=== PATIENT | female | born 1990 | race Two or more races ===

== ENCOUNTER 2020-04-11 04:03 | Inpatient (IN) | payer MEDICAID, OTHER ==
[~2020-04-11] VITALS: Ht 162.6 cm; Wt 97.5 kg
[2020-04-11] MEDS ORDERED: LACT. RINGERS/OXYTOCIN 20UNITS 1,000 ML IV SCH (05:03)
[2020-04-11] MEDS ORDERED: LACTATED RINGER'S 1,000 ML IV SCH (05:03)
[2020-04-11] MEDS ORDERED: PENICILLIN G POT 5MIL/D5 50ML 50 ML IV ONE ×2 (05:13→05:15)
[2020-04-11] MEDS ORDERED: DERMOPLAST 60ML BOTTLE TOP PRN (05:15)
[2020-04-11] MEDS ORDERED: METHYLERGONOVINE MALEATE 0.2 MG/ML AMP IM PRN (05:15)
[2020-04-11] MEDS ORDERED: WITCH HAZEL-GLYCERIN PAD TOP PRN (05:15)
[2020-04-11] MEDS ORDERED: LIDOCAINE 2%HCL (LOCAL ANESTH.) INJ 20ML MDV ID PRN (05:15)
[2020-04-11] MEDS ORDERED: PHISODERM TOP SOLN 240ML BTL TOP PRN (05:15)
[2020-04-11 05:49] LABS: Basophils # (auto) 0.1 10 ^3/uL (0-0.2); Basophils % (auto) 0.9 % (0.0-2.0); Eosinophils # (auto) 0.2 10 ^3/uL (0-0.8); Eosinophils % (auto) 1.3 % (0.0-7.0); Hematocrit 39.5 % (36.0-46.0); Hemoglobin 13.2 g/dL (12.2-16.2); Lymphocytes # (auto) 2.7 10 ^3/uL (0.4-5.4); Lymphocytes % (auto) 20.3 % (10.0-50.0); Mean Corpuscular Hemoglobin 30.1 pg (28.0-32.0); Mean Corpuscular Hgb Conc. 33.3 g/dL (32.0-36.0); Mean Corpuscular Volume 90.4 fL (80.0-100.0); Monocytes # (auto) 0.7 10 ^3/uL (0-1.3); Monocytes % (auto) 5.3 % (0.0-12.0); Neutrophils # (auto) 9.6 10 ^3/uL (1.6-8.6); Neutrophils % (auto) 72.2 % (37.0-80.0); Platelet Count (auto) 301 10^3/uL (140-450); Red Blood Cells 4.36 10^6/uL (4.0-5.20); White Blood Cell 13.4 10^3/uL (4.4-10.8)
[2020-04-11 05:58] LABS: INR 0.93 (0.9-1.15); Partial Thromboplastin Time 27.5 sec (23.0-31.2)
[2020-04-11 06:02] LABS: Albumin 2.6 g/dL (3.4-5.0); BUN/Creatinine Ratio 12.2; Calcium 8.8 mg/dL (8.5-10.1); Potassium 3.8 mmol/L (3.5-5.1)
[2020-04-11 06:05] LABS: Bilirubin, Total 0.4 mg/dL (0.2-1.0); Total Protein 6.6 g/dL (6.4-8.2)
[2020-04-11 06:10] LABS: Urine Bacteria FEW /hpf (None Seen); Urine Blood Negative /uL (Negative); Urine Hyaline Cast FEW /lpf (0 - 2); Urine Mucus FEW (None Seen); Urine Specific Gravity 1.014 (1.001-1.035); Urine WBC 1 /hpf (0 - 5)
[2020-04-11 06:19] LABS: Alcohol, Urine < 3.0 mg/dL (0-10); Amphetamine Screen, Urine NEGATIVE (NEGATIVE); Barbiturate Scree,Urine NEGATIVE (NEGATIVE); Benzodiazephine Screen, Urine NEGATIVE (NEGATIVE); Cannabinoid Screen, Urine NEGATIVE (NEGATIVE); Cocaine Screen, Urine NEGATIVE (NEGATIVE); Opiate Scree,Urine NEGATIVE (NEGATIVE); Phencyclidine Screen, Urine NEGATIVE (NEGATIVE)
[2020-04-11] MEDS ORDERED: PENICILLIN G POTASSIUM 2,500,000 UNITS in D5W 5% 50 ML IV SCH (09:15)
[2020-04-11] MEDS ORDERED: LACTATED RINGER'S 1,000 ML IV ONE (11:35)
[2020-04-11] MEDS ORDERED: LIDOCAINE HCL 2 %PF INJ 10ML AMP IJ ONE (11:45)
[2020-04-11] MEDS ORDERED: NALOXONE HCL 0.4 MG/ML VIAL IV ONE (11:45)
[2020-04-11] MEDS ORDERED: ROPIVACAINE HCL 100 ML EPI SCH (11:45)
[2020-04-11] MEDS ORDERED: ePHEDrine SULFATE 50 MG/ML AMP IV ONE (11:45)
[2020-04-11] MEDS ORDERED: fentaNYL CITRATE 100 MCG/2 ML VL IV ONE (11:45)
[2020-04-11] MEDS ORDERED: PROMETHAZINE HCL 25 MG/ML 1ML IV ONE (12:00)
[2020-04-11] MEDS ORDERED: BUTORPHANOL TARTRATE 2 MG/1 ML VIAL IV ONE (12:00)
[2020-04-11] MEDS ORDERED: IBUPROFEN 600 MG TAB PO PRN (12:45)
--- NOTE | 2020-04-11 15:00 | NUR ---
Patient ambulated to the restroom with standby assist of RN. Tolerated well. Void 800ml urine without difficulty. One small, dime size clot noted on pad. Mackenzie pad and pad weighed. QBL 159 ml. Total QBL 234 ml. Educated on pericare. Demonstrated proper technique without difficulty. Ambulated back to bed. Steady gait. Pain 0/10. Educated on need to massage fundus to decrease risk of hemorrhage, call for assistance to the restroom for second void, call if any clots noted. Verbalized understanding of all information.
[2020-04-11] MEDS ORDERED: PREN-96 PO (17:26)
[2020-04-11 19:00] VITALS: BP 116/67
--- NOTE | 2020-04-11 21:37 | NUR ---
IV removal IV DC'd with sterile technique, catheter fully intact. Pressure dressing applied to site. Patient tolerated procedure well.
[2020-04-11] MEDS ORDERED: TETANUS-DIPTH-ACEL PERTUSSIS 0.5ML SYR Tdap IM ONE (22:15)
[2020-04-11 22:52] VITALS: BP 122/80
[2020-04-12 02:44] VITALS: BP 118/83
[2020-04-12 07:00] VITALS: BP 119/82
--- NOTE | 2020-04-12 09:30 | NUR ---
[employer] SUPERVISOR JAY JAY AT BEDSIDE AND SPOKE WITH PATIENT AND OKAY TO BE DISCHARGED ON SOCIAL; SERVICE STAND POINT.
[2020-04-12 10:33] VITALS: BP 121/85
--- NOTE | 2020-04-12 10:46 | NUR ---
Assessment Regarding Social service consult for [employer]. Patient is a Ukrainian speaker. Patient informed me she did take her care during . Patient informed me she did understand the bedside nurse when they where asking her questions. Patient resides with family and will have assistance with baby upon discharge. Patient has all supplies as well as car seat for baby and will be bottle and breastfed. Pt has medical insurance for herself and baby and will be following up with provider appt post discharge. Pt has transportation home upon discharge. Informed USHA Wilburn.
--- NOTE | 2020-04-12 12:20 | NUR ---
Report given to Shanita Carlos RN
--- NOTE | 2020-04-12 14:51 | NUR ---
Discharge: Discharge instructions given as ordered. Pt encouraged to follow up with AUDIT MACHINE OPERATOR as instructed. All questions and concerns addressed. Patient verbalized understanding. Medication reconciliation completed and copy given to patient. All required/requested vaccines given and copies of vaccinations given to patient. Patient encouraged to prepare to depart unit.
[2020-04-12 15:14] VITALS: BP 119/82
--- NOTE | 2020-04-12 15:15 | NUR ---
Discharge: Patient taken to vehicle via ambulating with all personal belongings, accompanied by staff and family member. No distress noted at time of departure, no adverse changes in status since initial assessment. All d/c education translated by [employer].
== END 2020-04-12 15:15 | disposition home or self-care (01) | DRG 560 ==
LOC: LDRP 04:03 → OBSVTOIN 04:58 → LDRP 04:59
PROVIDERS: ADMIT Specialist; ATTEND Specialist
PROC: 10E0XZZ Delivery of Products of Conception, External Approach (ICD-10-PCS; principal; 2020-04-11)
PROC: 3E0234Z Introduction of Serum, Toxoid and Vaccine into Muscle, Percutaneous Approach (ICD-10-PCS; 2020-04-11)
DX: O80 Encounter for full-term uncomplicated delivery (principal); Z37.0 Single live birth; Z3A.39 39 weeks gestation of pregnancy; Z11.59 Encounter for screening for other viral diseases; Z23 Encounter for immunization
CPT/HCPCS: 36415; 59025; 59409; 80053; 80307; 81001; 81002; 84112; 85025; 85610; 85730; 86850; 86900; 86901; 90715; 96360; 96361; 96365; 96366; 96372; G0378; J2540; J2590; J7060

== ENCOUNTER 2022-03-19 09:53 | Observation (INO) | payer MEDICAID ==
[~2022-03-19 09:53] MED LIST: PREN-96 PO
== END 2022-03-19 11:35 | disposition home or self-care (01) ==
LOC: LDRP 09:53
PROVIDERS: ADMIT Obstetrics & Gynecology; ATTEND Obstetrics & Gynecology
DX: O62.9 Abnormality of forces of labor, unspecified (principal); Z3A.39 39 weeks gestation of pregnancy
CPT/HCPCS: 59025; 81002; G0378

== ENCOUNTER 2022-03-20 03:21 | Inpatient (IN) | payer MEDICAID ==
[~2022-03-20] VITALS: Ht 157.5 cm; Wt 99.8 kg
[2022-03-20] MEDS ORDERED: LACTATED RINGER'S 1,000 ML IV SCH (04:00)
[2022-03-20] MEDS ORDERED: PHISODERM TOP SOLN 240ML BTL TOP PRN (04:00)
[2022-03-20] MEDS ORDERED: WITCH HAZEL-GLYCERIN PAD TOP PRN (04:00)
[2022-03-20] MEDS ORDERED: LIDOCAINE 2%HCL (LOCAL ANESTH.) INJ 10ml MDV IJ PRN (04:00)
[2022-03-20] MEDS ORDERED: PROMETHAZINE HCL 25 MG/ML 1ML IV PRN (04:00)
[2022-03-20] MEDS ORDERED: BUTORPHANOL TARTRATE 2 MG/1 ML VIAL IV PRN ×2 (04:00)
[2022-03-20] MEDS ORDERED: DERMOPLAST 60ML BOTTLE TOP PRN (04:00)
[2022-03-20] MEDS ORDERED: PENICILLIN G POT 5MIL/D5 50ML 50 ML IV ONE (04:00)
[2022-03-20 04:25] LABS: Basophils # (auto) 0 10 ^3/uL (0-0.2); Basophils % (auto) 0.4 % (0.0-2.0); Eosinophils # (auto) 0.1 10 ^3/uL (0-0.8); Eosinophils % (auto) 0.9 % (0.0-7.0); Hematocrit 38.1 % (36.0-46.0); Hemoglobin 12.5 g/dL (12.2-16.2); Lymphocytes # (auto) 2.5 10 ^3/uL (0.4-5.4); Lymphocytes % (auto) 19.9 % (10.0-50.0); Mean Corpuscular Hemoglobin 28.7 pg (28.0-32.0); Mean Corpuscular Hgb Conc. 32.9 g/dL (32.0-36.0); Mean Corpuscular Volume 87.1 fL (80.0-100.0); Monocytes # (auto) 0.6 10 ^3/uL (0-1.3); Monocytes % (auto) 4.8 % (0.0-12.0); Neutrophils # (auto) 9.2 10 ^3/uL (1.6-8.6); Red Blood Cells 4.38 10^6/uL (4.0-5.20); White Blood Cell 12.5 10^3/uL (4.4-10.8)
[2022-03-20 04:44] LABS: INR 0.89 (0.9-1.15); Partial Thromboplastin Time 28.1 sec (24.6-33.4)
[2022-03-20 04:53] LABS: Albumin 2.9 g/dL (3.4-5.0); BUN/Creatinine Ratio 16.1; Calcium 8.8 mg/dL (8.5-10.1); Potassium 3.6 mmol/L (3.5-5.1)
[2022-03-20 04:56] LABS: Bilirubin, Total 0.3 mg/dL (0.2-1.0); Total Protein 6.6 g/dL (6.4-8.2)
[2022-03-20] MEDS ORDERED: NS/OXYTOCIN 20UNITS 500 ML IV ONE ×4 (05:45→07:30)
[2022-03-20] MEDS ORDERED: OXYTOCIN 10UNIT/ML 1ML VIAL ONE (06:44)
[2022-03-20] MEDS ORDERED: OXYTOCIN 10UNIT/ML 1ML VIAL IM ONE (06:45)
[2022-03-20 06:52] LABS: Alcohol, Urine < 3.0 mg/dL (0-10); Amphetamine Screen, Urine NEGATIVE (NEGATIVE); Barbiturate Scree,Urine NEGATIVE (NEGATIVE); Benzodiazephine Screen, Urine NEGATIVE (NEGATIVE); Cannabinoid Screen, Urine NEGATIVE (NEGATIVE); Cocaine Screen, Urine NEGATIVE (NEGATIVE); Opiate Scree,Urine NEGATIVE (NEGATIVE); Phencyclidine Screen, Urine NEGATIVE (NEGATIVE)
[2022-03-20 06:53] LABS: Urine Bacteria NONE SEEN /hpf (None Seen); Urine Blood 1+ /uL (Negative); Urine Mucus FEW (None Seen); Urine Specific Gravity 1.014 (1.001-1.035); Urine WBC 2 /hpf (0 - 5)
[2022-03-20] MEDS ORDERED: ACETAMINOPHEN 325 MG TAB PO PRN (07:00)
[2022-03-20] MEDS ORDERED: IBUPROFEN 600 MG TAB PO PRN (07:00)
[2022-03-20] MEDS ORDERED: ONDANSETRON HCL 4 MG/2 ML VIAL IV PRN (07:00)
[2022-03-20] MEDS ORDERED: PENICILLIN G POTASSIUM 2,500,000 UNITS in D5W 5% 50 ML IV SCH (08:00)
[2022-03-20 09:19] VITALS: BP 123/65
[2022-03-20 11:20] VITALS: BP 115/60
[2022-03-20] MEDS: IBUPROFEN 800 MG TAB PO SCH ×2 (12:00→18:00)
[2022-03-20 15:00] VITALS: BP 126/74
[2022-03-20 19:30] VITALS: BP 117/65
[2022-03-20] MEDS ORDERED: DOCUSATE SOD 100 MG CAP PO SCH (22:00)
[2022-03-20 23:00] VITALS: BP 116/78
[2022-03-21 03:30] VITALS: BP 114/69
[2022-03-21] MEDS: IBUPROFEN 800 MG TAB PO SCH ×3 (05:43→12:00)
[2022-03-21] MEDS ORDERED: IBUP800T26 PO (06:12)
[2022-03-21 07:00] VITALS: BP 115/71
[2022-03-21 09:06] LABS: RPR Non Reactive (Non Reactive)
[2022-03-21 11:00] VITALS: BP 129/77
== END 2022-03-21 12:20 | disposition home or self-care (01) | DRG 560 ==
LOC: LDRP 03:21 → OBSVTOIN 03:52 → LDRP 04:18
PROVIDERS: ADMIT Obstetrics & Gynecology; ATTEND Obstetrics & Gynecology
PROC: 10E0XZZ Delivery of Products of Conception, External Approach (ICD-10-PCS; principal; 2022-03-20)
DX: O69.81X0 Labor and delivery complicated by cord around neck, without compression, not applicable or unspecified (principal); Z37.0 Single live birth; Z20.822 Contact with and (suspected) exposure to COVID-19; Z3A.39 39 weeks gestation of pregnancy
CPT/HCPCS: 36415; 59409; 80053; 80307; 81001; 85025; 85610; 85730; 86592; 86762; 86850; 86900; 86901; 87340; 94760; 96360; 96361; 96365; 96366; 96372; G0378; J2001; J2540; J2590; J7060

== ENCOUNTER 2024-11-18 06:20 | Emergency (ER) | payer MEDICAID ==
[~2024-11-18] VITALS: Ht 165.1 cm; Wt 104.0 kg
[~2024-11-18 06:20] MED LIST changes: +IBUP-1455 PO
--- NOTE | 2024-11-18 07:00 | ED.PDOC ---
SOB-HPI HPI Comments 33 year old female presents to the ED with a chief complaint of shortness of breath onset yesterday (11/17/24). 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 Patient believes it could be causes to chemicals she used to clean. Denies any PMHx as well as headache, dizziness, blurry vision, nausea, vomiting, diarrhea, abdominal pain, LOC, fall. No other symptoms or modifying factors present at this time. Chief Complaint: Shortness of Breath Time Seen by MD: 06:53 Reviewed notes: Medications, Allergies Information Source: Patient Mode of Arrival: Ambulatory Severity: Moderate Timing: Hours Duration: Since onset Context: At Rest PE Risk Factors: None History of: None Prehospital treatment: None Modifying Factors: Nothing Associated Signs and Symptoms: Chest Pain Quality: Pressure Radiation: No Radiation Past Medical History PAST MEDICAL HISTORY: Denies Surgical History: Denies all surgeries TITLE ABSTRACTOR History: No Pertinent TITLE ABSTRACTOR History Family History Family History: Unknown Social History Smoker: Non-Smoker Alcohol: Denies ETOH Use Drugs: Denies Drug Use Lives In: Home Constitutional: denies: chills, diaphoresis, fatigue, fever, malaise, sweats, weakness, others EENTM: denies: blurred vision, double vision, ear bleeding, ear discharge, ear drainage, ear pain, ear ringing, eye pain, eye redness, hearing loss, mouth pain, mouth swelling, nasal discharge, nose bleeding, nose congestion, nose pain, photophobia, tearing, throat pain, throat swelling, voice changes, others Respiratory: reports: shortness of breath; denies: cough, hemoptysis, orthopnea, SOB at rest, SOB with excertion, stridor, wheezing, others Cardiovascular: reports: chest pain; denies: dizzy spells, diaphoresis, Dyspnea on exertion, edema, irregular heart beat, left arm pain, lightheadedness, palpitations, PND, syncope, others Gastrointestinal: denies: abdomen distended, abdominal pain, blood streaked bowels, constipated, diarrhea, dysphagia, difficulty swallowing, hematemesis, melena, nausea, poor appetite, poor fluid intake, rectal bleeding, rectal pain, vomiting, others Genitourinary: denies: abnormal vagina bleeding, burning, dyspareunia, dysuria, flank pain, frequency, hematuria, incontinence, pain, , vagina discharge, urgency, others Neurological: denies: dizziness, fainting, headache, left sided numbness, left sided weakness, numbness, paresthesia, pre-existing deficit, right sided numbness, right sided weakness, seizure, speech problems, tingling, tremors, weakness, others Musculoskeletal: denies: back pain, gout, joint pain, joint swelling, muscle pain, muscle stiffness, neck pain, others Integumetry: denies: bruises, change in color, change in hair/nails, dryness, laceration, lesions, lumps, rash, wounds, others Allergic/Immunocompromised: denies: Difficulty Healing, Frequent Infections, Hives, Itching, others Hematologic/Lymphatic: denies: anemia, blood clots, easy bleeding, easy bruising, swollen glands, others Endocrine: denies: excessive hunger, excessive sweating, excessive thirst, excessive urination, flushing, intolerance to cold, intolerance to heat, unexplained weight gain, unexplained weight loss, others Psychiatric: denies: anxiety, bipolar disorder, depression, hopeless, panic disorder, schizophrenia, sleepless, suicidal, others All Other Systems: Reviewed and Negative Physical Exam General Appearance: No Apparent Distress, Normal HEENT: Normal ENT Inspection, Pharynx Normal, TMs Normal Neck: Full Range of Motion, Non-Tender, Normal, Normal Inspection Respiratory: Chest Non-Tender, Lungs Clear, No Accessory Muscle Use, No Respiratory Distress, Normal Breath Sounds Cardiovascular: No Edema, No JVD, No Murmur, No Gallop, Normal Peripheral Pulses, Regular Rate/Rhythm Breast Exam: Deferred Gastrointestinal: No Organomegaly, Non Tender, No Pulsatile Mass, Normal Bowel Sounds, Soft Genitalia: Deferred Pelvic: Deferred Rectal: Deferred Extremities: No calf tenderness, Normal capillary refill, Normal inspection, Normal range of motion, Non-tender, No pedal edema Musculoskeletal : Apperance: Normal Neurologic: Alert, tax senior associate II-XII nml as Tested, No Motor Deficits, Normal Affect, Normal Mood, No Sensory Deficits Cerebellar Function: Normal Reflexes: Normal Skin: Dry, Normal Color, Warm Lymphatic: No Adenopathy Was a procedure done? Was a procedure done?: No Differential Dx Differential Diagnosis: Anxiety, Asthma, Bronchitis, CHF, COPD, Hypertension, Pneumonia, URI X-Ray, Labs, Meds, VS Vital Signs Date Time Temp Pulse Resp B/P (MAP) Pulse Ox O2 Delivery O2 Flow Rate FiO2 11/18/24 07:39 Room Air* 0 21 11/18/24 07:39 97.8 78 15 154/91 (112) 99 97.8 11/18/24 06:49 16 95 Room Air* 0 21 11/18/24 06:44 93 11/18/24 06:35 97.0 103 16 138/99 (112) 95 Lab Test 11/18/24 07:07 Range/Units White Blood Count 8.6 4.4-10.8 10^3/uL Red Blood Count 4.66 4.0-5.20 10^6/uL Hemoglobin 14.3 12.2-16.2 g/dL Hematocrit 41.0 36.0-46.0 % Mean Corpuscular Volume 87.9 80.0-100.0 fL Mean Corpuscular Hemoglobin 30.6 28.0-32.0 pg Mean Corpuscular Hemoglobin Concent 34.8 32.0-36.0 g/dL Red Cell Distribution Width 13.1 11.8-14.3 % Platelet Count 353 140-450 10^3/uL Mean Platelet Volume 8.7 6.9-10.8 fL Neutrophils (%) (Auto) 59.0 37.0-80.0 % Lymphocytes (%) (Auto) 31.3 10.0-50.0 % Monocytes (%) (Auto) 4.9 0.0-12.0 % Eosinophils (%) (Auto) 4.6 0.0-7.0 % Basophils (%) (Auto) 0.2 0.0-2.0 % Neutrophils # (Auto) 5.1 1.6-8.6 10 ^3/uL Lymphocytes # (Auto) 2.7 0.4-5.4 10 ^3/uL Monocytes # (Auto) 0.4 0-1.3 10 ^3/uL Eosinophils # (Auto) 0.4 0-0.8 10 ^3/uL Basophils # (Auto) 0 0-0.2 10 ^3/uL Nucleated Red Blood Cells 0.0 % Sodium Level 140 136-145 mmol/L Potassium Level 3.7 3.5-5.1 mmol/L Chloride Level 106 98-107 mmol/L Carbon Dioxide Level 25 20-31 mmol/L Anion Gap 9 5-15 Blood Urea Nitrogen 7 L 9-23 mg/dL Creatinine 0.66 0.550-1.02 mg/dL Glomerular Filtration Rate Calc 119 >90 mL/min BUN/Creatinine Ratio 10.6 10.0-20.0 Serum Glucose 103 74-106 mg/dL Calcium Level 10.2 8.7-10.4 mg/dL Troponin I High Sensitivity < 3 L </=34 ng/L [place] [id number] Ph: [phone] DIAGNOSTIC IMAGING Diagnostic Imaging Report : [id number] Signed PATIENT: JOSE A GRIGGS ACCT: [id number] UNIT: [id number] : 1990 LOC: ER ROOM / BED: / AGE / SEX: 33 / F ADM STATUS: REG ER SERVICE ORDERING PHYSICIAN: ROXANA LONG TIE CARRIER PROCEDURE(s): CXR1 - CHEST XRAY 1 VIEW REASON: c/o chest tightness ORDER NUMBER(s): [id number], ACCESSION NUMBER(s): [id number] CLINICAL INFORMATION: chest tightness. TECHNIQUE: Single AP portable chest radiograph was obtained. COMPARISON: None FINDINGS: Lungs: Clear. Cardiac: Heart size is within normal limits. Pulmonary vasculature: Unremarkable. Mediastinum/kodak: Unremarkable. Bones: No acute osseous abnormality identified. Other: No other significant findings. IMPRESSION: No evidence of acute disease in the chest. ATED BY: ELLIOTT HUITRON DO DICTATED DATE/TIME: 11/18/24722 SIGNED BY: ELLIOTT HUITRON DO SIGNED DATE/TIME: 11/18/24722 CC: Time of 1ST Reevaluation: 07:23 Reevaluation 1ST: Unchanged Patient Education/Counseling: Diagnosis, Treatment, Prognosis Family Education/Counseling: No Family Present Additional Information The following tests were ordered, and results were reviewed by me: XY CHEST 1 VIEW, BMP, CBC, TROP I reviewed and agreed with the following test results read by other providers: XY CHEST 1 VIEW I discussed treatment and results with medical personnel and: patient Departure 1 Departure Time of Disposition: 08:45 (Patient presented with chest pain that was concerning for possible STEMI, ACS, PE, Pneumonia, Muscle Strain, COPD, Dissection. Data: 1. I ordered and reviewed the result of at least 3 labs including a CBC, BMP, and Troponin. 2. I independently interpreted the following tests: EKG which shows normal sinus rhythm and Chest X-ray which shows a benign chest.Risk:This patient presented with a high risk of morbidity due to further diagnostic testing or treatment and may suffer from an acute cardiac or respiratory disorder. After review of all the data patient is unlikely to have a pe , dissection, and is low risk for acs. Patient is stable at this time.Workup so far is benign and patient will be discharged with outpatient followup. ) Impression: Primary Impression: Acute chest pain Additional Impression: Bronchitis Disposition: HOME / SELF CARE / HOMELESS Condition: Stable Additional Instructions: You presented today with chest pain. You likely have bronchitis. Your workup today was benign including labs, troponin, EKG, chest x-ray. Your pain may be from musculoskeletal strain, acid reflux, anxiety, or many other factors. It is important to follow up with your regular doctor within 1 week. If your symptoms worsen or you have any other concerns please return to the emergency room. Discharged With: Self Critical Care Note Critical Care Time?: No Stability Stability form required: No Heart Score Heart Score: Heart Score Response (Comments) Value History Slightly Suspicious 0 EKG Normal 0 Age <45 0 Risk Factors No known risk factors 0 Troponin Normal limit 0 Total 0 I personally scribed for RENE BOSTON MD ([email or web address]) on 11/18/24 at 07:00. Electronically submitted by Yajaira Swain ([email or web address]). I personally scribed for RENE BOSTON MD ([email or web address]) on 11/18/24 at 07:00. Electronically submitted by Yajaira Swain ([email or web address]). I personally scribed for RENE BOSTON MD ([email or web address]) on 11/18/24 at 08:10. Electronically submitted by Yajaira Swain ([email or web address]). RENE BOSTON MD Nov 18, 2024 07:00
--- NOTE | 2024-11-18 07:26 | DVH ---
CLINICAL INFORMATION: chest tightness. TECHNIQUE: Single AP portable chest radiograph was obtained. COMPARISON: None FINDINGS: Lungs: Clear. Cardiac: Heart size is within normal limits. Pulmonary vasculature: Unremarkable. Mediastinum/kodak: Unremarkable. Bones: No acute osseous abnormality identified. Other: No other significant findings. IMPRESSION: No evidence of acute disease in the chest.
[2024-11-18 07:35] LABS: Chloride 106 mmol/L (98-107); Potassium 3.7 mmol/L (3.5-5.1); Sodium 140 mmol/L (136-145)
[2024-11-18 07:36] LABS: Anion Gap 9 (5-15); Calcium 10.2 mg/dL (8.7-10.4); Carbon Dioxide 25 mmol/L (20-31)
[2024-11-18 07:40] LABS: Basophils # (auto) 0 10 ^3/uL (0-0.2); Basophils % (auto) 0.2 % (0.0-2.0); Eosinophils # (auto) 0.4 10 ^3/uL (0-0.8); Eosinophils % (auto) 4.6 % (0.0-7.0); Hemoglobin 14.3 g/dL (12.2-16.2); Lymphocytes # (auto) 2.7 10 ^3/uL (0.4-5.4); Lymphocytes % (auto) 31.3 % (10.0-50.0); Mean Corpuscular Hemoglobin 30.6 pg (28.0-32.0); Mean Corpuscular Hgb Conc. 34.8 g/dL (32.0-36.0); Mean Corpuscular Volume 87.9 fL (80.0-100.0); Monocytes # (auto) 0.4 10 ^3/uL (0-1.3); Monocytes % (auto) 4.9 % (0.0-12.0); Neutrophils # (auto) 5.1 10 ^3/uL (1.6-8.6); Platelet Count (auto) 353 10^3/uL (140-450); Red Blood Cells 4.66 10^6/uL (4.0-5.20); Red Cell Distribution Width 13.1 % (11.8-14.3); White Blood Cell 8.6 10^3/uL (4.4-10.8)
[2024-11-18 07:41] LABS: BUN/Creatinine Ratio 10.6 (10.0-20.0); Glucose 103 mg/dL (74-106)
[2024-11-18 07:42] LABS: Blood Urea Nitrogen 7 mg/dL (9-23)
[2024-11-18 09:03] VITALS: BP 133/89; PULSE 86; TEMP 98.1
[2024-11-18] MEDS: DexAMETHasone SOD PHOS 10MG/1ML VIAL INJ PO ONE (09:07)
[2024-11-18 09:11] VITALS: RESP 18; O2SAT 99
[2024-11-18] MEDS: ALBUTEROL SULF 2.5 MG/0.5ML(0.5%) NEB SOLN NEB ONE (09:12)
--- NOTE | 2024-11-20 13:48 | ECG ---
[facility] Test Date: 2024-11-18 Test Time: 06:44:59 Pat Name: JOSE A CRUZ Department: ED Room: Gender: F Phytopathology Teacher: NASH : 1990 Requested By: RENE BOSTON Order Number: [id number] Reading MD: Measurements Intervals [place] Rate: 93 P: 82 SD: 156 QRS: 82 QRSD: 87 T: 39 QT: 351 QTc: 437 Interpretive Statements Sinus rhythm Minimal ST depression, inferior leads Please click the below link to view image of tracing.
== END 2024-11-18 09:21 | disposition home or self-care (01) ==
LOC: ER 06:20
DX: J40 Bronchitis, not specified as acute or chronic (principal); R07.89 Other chest pain
CPT/HCPCS: 36415; 71045; 80048; 84484; 85025; 94640; 99284; J1100